=== PATIENT | female | born 1960 | race African-American/Black ===

== ENCOUNTER 2021-11-13 16:08 | Emergency (ER) | payer OTHER ==
[~2021-11-13] VITALS: Ht 160 cm; Wt 81.7 kg
[2021-11-13 16:43] VITALS: BP 159/65
[2021-11-13 18:22] LABS: ABSOLUTE NEUTROPHILS 6.4 thou/uL (1.4-8.2); BASOPHILS 0.4 % (0.0-2.0); EOSINOPHILS 4.9 % (0.0-3.0); HEMATOCRIT 40.5 % (37.0-47.0); HEMOGLOBIN 12.8 gm/dL (12.0-15.0); LYMPHOCYTES 18.6 % (24.0-44.0); MCH 26.7 pg (26.0-34.0); MCHC 31.5 g/dL (28.0-37.0); MCV 84.6 fL (80.0-100.0); PLATELET COUNT 307 thou/uL (150-400); POLYS 67.1 % (36.0-66.0); RBC 4.78 mil/uL (4.20-5.00); RDW 14.9 % (10.5-14.5); WBC 9.5 thou/uL (4.0-11.0)
[2021-11-13 18:41] LABS: CALCIUM 8.8 mg/dL (8.5-10.1); POTASSIUM 3.7 mmol/L (3.5-5.1)
[2021-11-13 18:50] LABS: ALBUMIN 3.2 g/dL (3.4-5.0); TOTAL BILIRUBIN 0.2 mg/dL (0.2-1.0)
[2021-11-13] MEDS ORDERED: PROAIR HFA8.5 GM INH ×2 (20:56→21:02)
[2021-11-13] MEDS ORDERED: MAGIC MOUTHWASH SW&SWALLOW ×2 (20:56→21:02)
--- NOTE | 2021-11-14 08:09 | EKG ---
[address] [address] ELECTROCARDIOGRAM REPORT Name: WALKER GILLIAM [id number] Admission: 11/13/21 Attend Phys: Discharge: Date of : 60 Report #: [id number] [facility] ED Test Date: 2021-11-13 Test Time: 17:32:32 Pat Name: WALKER GILLIAM Department: Room: Gender: F [employer] Equipment Operator: NURA : 1960 Requested By: Marlyn Zaragoza Order Number: [id number] MD: Damon Paula Measurements Intervals [place] Rate: 74 P: 13 VA: 148 QRS: -37 QRSD: 108 T: 34 QT: 393 QTc: 436 Interpretive Statements Sinus rhythm Left axis deviation No previous ECG available for comparison Electronically Signed On 11-14-2021 8:09:39 [employer] by Damon Paula [email or web address] <ELECTRONICALLY SIGNED> By: Damon Paula MD, [facility] 11/14/21 0809 1732 1732 Damon Paula MD, FACC /EPI
== END 2021-11-13 23:27 | disposition home or self-care (01) ==
LOC: ER 16:08 → EDBD 16:08 → ER 23:27
PROVIDERS: Physician Assistant
DX: J02.9 Acute pharyngitis, unspecified (principal); R06.02 Shortness of breath; F17.210 Nicotine dependence, cigarettes, uncomplicated; J44.9 Chronic obstructive pulmonary disease, unspecified; E66.9 Obesity, unspecified